=== PATIENT | female | born 1955 | race Caucasian/White ===

== ENCOUNTER → 2020-04-11 | Outpatient (CLI) | payer OTHER ==
[~2020-04-11] MED LIST: ALTA1CAP4 PO; ASPI81TA86 PO; BP pill PO; JANU50TA22 PO
--- NOTE | 2020-04-11 09:29 | REP ---
Clinical: Preoperative assessment . Comparison: None . Technique: PA and lateral. Findings: The mediastinum and cardiac silhouette are normal. The lung banuelos are clear and without acute consolidation, effusion, or pneumothorax. The skeletal structures are intact and normal. Impression: 1. No acute cardiopulmonary process. Electronically Signed by Abel Dasilva MD 04/11/2020 09:20 A
--- NOTE | 2020-04-12 12:59 | ECGEPIP ---
[facility] Test Date: 2020-04-11 Pat Name: YAMIL VIEYRA Department: Room: - Gender: Female [employer]: [facility] : 1955 Requested By: KIRBY PEARL Order Number: [id number] Reading MD: Cong Keita Measurements Intervals [place] Rate: 93 P: 29 VA: 132 QRS: -46 QRSD: 102 T: 8 QT: 357 QTc: 444 Interpretive Statements Normal sinus rhythm Left axis deviation Delayed anterior R wave progression Possible pulmonary disease Comparison tracing not on file Electronically Signed on 04-12-2020 12:59:38 EDT by Cong Keita
== END ==
LOC: M EKG 08:47
PROVIDERS: ATTEND Obstetrics & Gynecology
DX: Z01.818 Encounter for other preprocedural examination (principal)

== ENCOUNTER 2020-04-15 06:07 | Day surgery (SDC) | payer OTHER ==
[~2020-04-15] VITALS: Ht 172.7 cm; Wt 96.6 kg
[~2020-04-15 06:07] MED LIST changes: -ALTA1CAP4 PO; +LR 1,000 ML IV ONE
[2020-04-15 06:35] LABS: HEMATOCRIT 41.9 % (36.0-47.0); HEMOGLOBIN 13.8 g/dl (12.0-15.5); MEAN CORPUSCULAR HEMOGLOBIN 26.8 pg (27.0-33.0); MEAN CORPUSCULAR HGB CONC 32.9 g/dl (32.0-36.5); MEAN CORPUSCULAR VOLUME 81.5 fl (80.0-96.0); PLATELET COUNT, AUTOMATED 261 10^3/uL (150-450); RED BLOOD COUNT 5.14 10^6/uL (4.00-5.40)
[2020-04-15] MEDS ORDERED: fentaNYL 100 MCG/2 ML INJECTION (J3010) As Ordered ONE (06:46)
[2020-04-15] MEDS ORDERED: MIDAZOLAM INJ 2MG/2ML VIAL (J2250 PER 1MG) As Ordered ONE (06:46)
[2020-04-15] MEDS ORDERED: propofoL 200 MG/20 ML VIAL As Ordered ONE (06:47)
[2020-04-15] MEDS ORDERED: PHENYLephrine 500MCG 5ML (100MCG/ML) SYRINGE As Ordered ONE (06:47)
[2020-04-15] MEDS ORDERED: ONDANSETRON 4MG/2ML VIAL As Ordered ONE (06:47)
[2020-04-15] MEDS ORDERED: ePHEDrine SULFATE 25 MG/5 ML(5MG/ML) SYRINGE As Ordered ONE (06:47)
[2020-04-15] MEDS ORDERED: dexameTHASONE 4 MG/ML 1ML VIAL (J1100 PER 1MG) As Ordered ONE (06:47)
[2020-04-15] MEDS ORDERED: LIDOCAINE 2% 100MG/5ML SDV (FOR ANES.) As Ordered ONE (06:47)
[2020-04-15] MEDS ORDERED: ALTA1CAP4 PO (06:50)
[2020-04-15 06:53] LABS: BLOOD UREA NITROGEN 14 MG/DL (7-18); CALCIUM LEVEL 9.1 MG/DL (8.8-10.2); CARBON DIOXIDE LEVEL 27 MEQ/L (21-32); CHLORIDE LEVEL 107 MEQ/L (98-107); CREATININE FOR GFR 0.96 MG/DL (0.55-1.30); GLOMERULAR FILTRATION RATE > 60.0 (>45); GLUCOSE, FASTING 164 MG/DL (70-100); POTASSIUM SERUM 3.9 MEQ/L (3.5-5.1); SODIUM LEVEL 140 MEQ/L (136-145)
[2020-04-15] MEDS ORDERED: KETOROLAC 60MG 2ML VIAL As Ordered ONE (07:42)
[2020-04-15] MEDS ORDERED: BUPIVACAINE HCL 0.5% 30 ML VIAL As Ordered ONE (07:46)
[2020-04-15] MEDS ORDERED: LR 1,000 ML IV SCH (08:45)
[2020-04-15] MEDS ORDERED: fentaNYL 100 MCG/2 ML INJECTION (J3010) IV PRN (08:45)
[2020-04-15] MEDS ORDERED: METOCLOPRAMIDE INJ 10MG/2ML VIAL (J2765 PER 1) IV PRN (08:45)
[2020-04-15] MEDS ORDERED: ONDANSETRON 4MG/2ML VIAL IV PRN (08:45)
[2020-04-15] MEDS ORDERED: PERCOCET 5MG/325MG TAB PO PRN (08:45)
[2020-04-15 09:48] VITALS: BP 134/89
--- NOTE | 2020-04-15 10:13 | POST-OPPD ---
Postoperative Procedure Note Date Of Procedure: Apr 15, 2020 PREOPERATIVE DIAGNOSIS: Postmenopausal bleeding POSTOPERATIVE DIAGNOSIS: endometrial polyps FINDINGS: multiple endometrial polyps PROCEDURE: operative hysteroscopy with polypectomy, fractional curettage SURGEON: Kirby Montes DO REFERENCE TEST CLERK: non ANESTHESIA: general SPECIMENS: endometrial biopsy, endometrial curetting ESTIMATED BLOOD LOSS: < 5cc REPLACED: 800cc LR DRAINS: none COMPLICATIONS: none POSTOPERATIVE CONDITION: stable hysteroscopic deficit: 400cc Detailed description of procedure: Tissue to pathology: endometrial biopsy endometrial curetting Hysteroscopic finding: Multiple polypoid nodules identified, atrophic endometrial lining. Normal appearing bilateral ostia identified. Description of procedure: The risks, benefits, indications and alternatives of the procedure were reviewed with the patient and informed written consent was obtained. The patient was taken to the operating room with IV running. She was placed under general anesthesia. Patient placed in lithotomy. The vagina and perineum were prepped and draped in the usual sterile fashion. A speculum was placed into the vagina and the cervix identified. The anterior aspect of the cervix was stabilized with a single-tooth tenaculum. Uterosacral ligaments injected with Marcaine 0.5% plain. Cervix dilate to 16french. A hysteroscope with 12 degree scope introduced. Normal Saline use as distension media. Findings as above. Myosure lite used for polypectomy and tissue sampling. Instruments removed from uterus. Fraction curettage performed and endometrial tissue sent to pathology. Procedure completed without issue. Fluid deficit 400cc. All instruments removed from the vagina. Count correct x 2. Patient was taken out of OR in stable condition KIRBY MONTES DO Apr 15, 2020 08:36
== END 2020-04-15 09:55 | disposition home or self-care (01) ==
LOC: M SDC 06:07
PROVIDERS: ATTEND Obstetrics & Gynecology
DX: C54.1 Malignant neoplasm of endometrium (principal); E11.9 Type 2 diabetes mellitus without complications; Z79.82 Long term (current) use of aspirin; Z79.899 Other long term (current) drug therapy
CPT/HCPCS: 36415; 58558; 80048; 85027; 88305; J1100; J1885; J2250; J2370; J2405; J3010

== ENCOUNTER → 2022-05-13 | Outpatient (REF) | payer OTHER, MEDICARE ==
[~2022-05-13] MED LIST changes: +ALTA1CAP4 PO; -LR 1,000 ML IV ONE
== END ==
LOC: M LAB REF 12:34
PROVIDERS: ATTEND Physician Assistant
DX: N39.0 Urinary tract infection, site not specified (principal)

== ENCOUNTER → 2023-01-19 | Outpatient (REF) | payer MEDICARE, OTHER | LOC: M LAB REF 12:19 | PROVIDERS: ATTEND Student in an Organized Health Care Education/Training Program | DX: R30.0 Dysuria (principal) ==

== ENCOUNTER → 2023-11-24 | Outpatient (REF) | payer MEDICARE, OTHER | LOC: M LAB REF 16:14 | PROVIDERS: ATTEND Student in an Organized Health Care Education/Training Program | DX: R30.0 Dysuria (principal) ==

== ENCOUNTER → 2024-08-05 | Outpatient (REF) | payer MEDICARE, OTHER | LOC: M LAB REF 20:14 | PROVIDERS: ATTEND Physician Assistant | DX: R30.0 Dysuria (principal) ==

== ENCOUNTER → 2025-02-12 | Outpatient (REF) | payer MEDICARE, OTHER | LOC: M LAB REF 12:12 | PROVIDERS: ATTEND Nurse Practitioner Family | DX: R30.0 Dysuria (principal) ==

== ENCOUNTER → 2025-06-05 | Outpatient (REF) | payer MEDICARE, OTHER | LOC: M LAB REF 11:42 | PROVIDERS: ATTEND Student in an Organized Health Care Education/Training Program | DX: R30.0 Dysuria (principal) ==

== ENCOUNTER → 2025-07-01 | Outpatient (REF) | payer MEDICARE, OTHER | LOC: M LAB REF 11:56 | PROVIDERS: ATTEND Student in an Organized Health Care Education/Training Program | DX: R30.0 Dysuria (principal) ==

== ENCOUNTER → 2025-07-23 | Outpatient (REF) | payer MEDICARE, OTHER | LOC: M LAB REF 11:53 | PROVIDERS: ATTEND Nurse Practitioner Family | DX: R30.0 Dysuria (principal) ==

== ENCOUNTER → 2025-08-06 | Outpatient (REF) | payer MEDICARE, OTHER | LOC: M LAB REF 12:36 | DX: R30.0 Dysuria (principal) ==